=== PATIENT | male | born 1945 | race Caucasian/White ===

== ENCOUNTER 2017-01-14 09:24 | Day surgery (SDC) | payer MEDICARE ==
[2017-01-14] MEDS ORDERED: fentaNYL 100 MCG/2 ML SDV ONE (09:43)
[2017-01-14] MEDS ORDERED: Propofol 200 MG/20 ML SDV ONE ×2 (09:43→11:21)
[2017-01-14] MEDS ORDERED: Lactated Ringers 1,000 ML IV SCH (10:00)
[2017-01-14 13:05] VITALS: BP 98/60
--- NOTE | 2017-01-14 14:07 | OR ---
DATE OF PROCEDURE: 01/14/2017 PREOPERATIVE DIAGNOSIS: Colon cancer screening. POSTOPERATIVE DIAGNOSIS: Two small rectal polyps. PROCEDURE PERFORMED: Colonoscopy to the cecum with biopsy resection of two small rectal polyps. ANESTHESIA: IV anesthesia with monitored anesthesia care. INDICATION: This 71-year-old white male is referred by Dr. Infante for a screening colonoscopy. I counseled him for the procedure including risks and alternatives , and he gave his informed consent to proceed. DESCRIPTION OF PROCEDURE: The patient was placed in the left lateral decubitus position. IV anesthesia was administered by the Anesthesia Service. Time-out was held. A rectal exam was performed, which was unremarkable. The flexible video Olympus colonoscope was introduced through his anus, up his rectum, and out his colon all way to the cecum. Once the cecum was reached, the scope was slowly withdrawn, examining the mucosa throughout. No mucosal abnormalities were noted until we reached the rectum. Here, we saw a small polyp, which was removed with the biopsy forceps. The scope was then retroflexed with the distal rectum showing another small polyp, which was removed with the biopsy forceps. These two rectal polyp polyps were sent to the laboratory as one specimen. The scope was straightened and removed. He tolerated the procedure well. Antoni Degroot MD /[id number] MTDDouglas
== END 2017-01-14 13:15 | disposition home or self-care (01) ==
LOC: JP.SDS 09:24
PROVIDERS: ATTEND Surgery
DX: Z12.11 Encounter for screening for malignant neoplasm of colon (principal); K62.1 Rectal polyp; I10 Essential (primary) hypertension; E78.00 Pure hypercholesterolemia, unspecified; Z79.899 Other long term (current) drug therapy
CPT/HCPCS: 45380; J2704; J3010; J7120; 88305

== ENCOUNTER 2021-11-06 18:35 | Emergency (ER) | payer MEDICARE ==
[2021-11-06 18:58] VITALS: PULSE 69
[2021-11-06 19:37] VITALS: BP 127/68
[2021-11-06] MEDS ORDERED: Ondansetron 4 MG/2 ML SDV IVPUSH ONE (19:37)
[2021-11-06] MEDS: HYDROmorphone 1 MG/ML Syringe IVPUSH PRN ×2 (19:44→20:52)
== END 2021-11-06 21:11 ==
LOC: JP.ED 18:35
DX: S82.831A Other fracture of upper and lower end of right fibula, initial encounter for closed fracture (principal); S82.101A Unspecified fracture of upper end of right tibia, initial encounter for closed fracture; I10 Essential (primary) hypertension; Z79.899 Other long term (current) drug therapy; Z20.822 Contact with and (suspected) exposure to COVID-19; W11.XXXA Fall on and from ladder, initial encounter
CPT/HCPCS: 29505; 36415; 73590; 80053; 85025; 85610; 85730; 96374; 96376; 99285; J1170; U0002

== ENCOUNTER 2024-05-05 06:25 | Day surgery (SDC) | payer MEDICARE ==
[~2024-05-05 06:25] MED LIST: Lactated Ringers 1,000 ML IV SCH
[2024-05-05] MEDS: Lactated Ringers 1,000 ML IV SCH (07:00)
[2024-05-05] MEDS ORDERED: fentaNYL 50 MCG/ML SDV ONE (07:10)
[2024-05-05] MEDS ORDERED: Propofol 200 MG/20 ML SDV ONE ×2 (07:10→07:47)
[2024-05-05 09:06] VITALS: BP 138/69; PULSE 77
== END 2024-05-05 09:15 | disposition home or self-care (01) ==
LOC: JP.SDS 06:25
PROVIDERS: ATTEND Surgery
DX: Z12.11 Encounter for screening for malignant neoplasm of colon (principal); Z86.0100 Personal history of colon polyps, unspecified; I10 Essential (primary) hypertension; E78.5 Hyperlipidemia, unspecified
CPT/HCPCS: G0121; J2704; J3010; J7120

== ENCOUNTER 2024-07-12 06:14 | Emergency (ER) | payer MEDICARE | END 2024-07-12 06:30 | disposition left against medical advice (07) | LOC: JP.ED 06:14 | DX: Z53.21 Procedure and treatment not carried out due to patient leaving prior to being seen by health care provider (principal) ==

== ENCOUNTER 2025-03-21 13:15 | Emergency (ER) | payer MEDICARE ==
[2025-03-21 14:24] LABS: APPEARANCE,URINE CLEAR (CLEAR); GLUCOSE,URINE NEGATIVE (NEGATIVE); OCCULT BLOOD,URINE NEGATIVE (NEGATIVE)
[2025-03-21 15:07] VITALS: BP 85/35; PULSE 69
== END 2025-03-21 17:19 | disposition home or self-care (01) ==
LOC: JP.ED 13:15
DX: M54.50 Low back pain, unspecified (principal); I10 Essential (primary) hypertension; K21.9 Gastro-esophageal reflux disease without esophagitis; Z87.891 Personal history of nicotine dependence; Z79.899 Other long term (current) drug therapy
CPT/HCPCS: 72100; 81003; 96372; 99283; J1171